=== PATIENT | female | born 1950 | race Caucasian/White ===

== ENCOUNTER → 2017-02-17 | Outpatient (CLI) | payer MEDICARE ==
--- NOTE | 2017-02-17 15:59 | RADIOLOGY REPORT PS360 ---
HAND-LT-3 VIEWS HISTORY: LEFT HAND /WRIST PAIN ORDERING PHYSICIAN: Kunal Bravo MD PATIENT AGE: 67 years COMPARISON: None FINDINGS: No acute fracture or dislocation. Osteoarthritic changes are present at the first metacarpal carpal joint. No destructive process. IMPRESSION: Osteoarthritic change of the first metacarpal carpal joint otherwise negative
--- NOTE | 2017-02-17 16:00 | RADIOLOGY REPORT PS360 ---
WRIST-3 VIEWS-LT HISTORY: LEFT HAND /WRIST PAIN ORDERING PHYSICIAN: Kunal Bravo MD PATIENT AGE: 67 years COMPARISON: None FINDINGS: Moderate osteoarthritic changes are present at the first metacarpal carpal joint. No fracture or dislocation. No lytic or blastic change. Dystrophic calcification is present at the base of the second metacarpal laterally. IMPRESSION: Osteoarthritis of the first metacarpal carpal
== END ==
LOC: RAD 15:16
DX: M79.642 Pain in left hand (principal); M25.532 Pain in left wrist

== ENCOUNTER → 2017-05-05 | Outpatient (CLI) | payer MEDICARE ==
[~2017-05-05] MED LIST: ASPIRIN EC81 MG PO; ATENOLOL25 M1 PO; BACTRIM DS 8001 TAB PO; CELEBREX200 MG PO; CHLORTABS4 MG PO; FLONASE 50 MCG16 GM; LEVOCETIRIZINE D5 MG PO; LISINOPRIL 10MG10 MG NG; LISINOPRIL/HCTZ1 TA3 PO; MECLIZINE 25MG25 MG PO; MECLIZINE12.5 M1 PO; MECLIZINE12.5 MG PO; METFORMIN500 MG PO; PAROXETINE20 MG PO; PHENERGAN 25MG.25 M1 PO; PROTONIX 40MG T40 MG PO; PROTONIX40 MG PO; SIMVASTATIN20 MG PO; SINGULAIR10 MG PO; TRAMADOL 50MG T50 MG PO; TURMERIC500 MG PO; TYLENOL ES500 MG PO; ZOFRAN ODT4 MG SL; ZYRTEC 10MG TAB10 MG PO
--- NOTE | 2017-05-05 13:45 | RADIOLOGY REPORT PS360 ---
DIG MAMM-DX UNI-RT W/CAD COMPARISON: 01/06 and 06/21/2014 INDICATION: Follow-up abnormal mammogram/biopsy ORDERING PHYSICIAN: Kunal Bravo MD PATIENT AGE: 67 years TECHNIQUE: Standard images performed along spot compression views FINDINGS: There is average fibroglandular tissue. Focal asymmetric density is present in the previous biopsy site which is not significant change likely due to scarring. This is likely less apparent on the nonspot compression view. Scattered areas of asymmetry are noted and stable compared to 06/21/2014. No residual or recurrent abnormal calcifications. IMPRESSION: Benign findings. No evidence of malignancy. Post biopsy changes medial right breast BI-RADS CATEGORY: 2_Benign RECOMMENDED FOLLOWUP: 6 month bilateral screening mammogram (A letter has been sent to the patient regarding results of the study.)
== END ==
LOC: RAD 05-02 13:45
DX: R92.8 Other abnormal and inconclusive findings on diagnostic imaging of breast (principal)
CPT/HCPCS: G0206-RT